=== PATIENT | male | born 1975 | race Caucasian/White ===

== ENCOUNTER 2021-05-02 16:44 | Emergency (ER) | payer BC, SELFPAY ==
[~2021-05-02] VITALS: Ht 182.9 cm; Wt 95.3 kg
[2021-05-02 16:54] VITALS: BP_SYST 136
[2021-05-02] MEDS ORDERED: IOHEXOL 350 mgI/mL, 150 ML INFUS..BTL IV ONE (18:11)
[2021-05-02 18:18] LABS: BASOPHILS % (AUTO) 0.5 % (0.0-2.0); EOSINOPHILS # (AUTO) 0.3 K/uL (0.0-0.4); EOSINOPHILS % (AUTO) 4.3 % (0.0-4.0); HEMATOCRIT 41.7 % (36-54); HEMOGLOBIN 14.3 g/dL (14.0-18.0); LYMPHOCYTES # (AUTO) 1.9 K/uL (1.0-5.5); LYMPHOCYTES % (AUTO) 31.1 % (20.5-51.5); MEAN CORPUSCULAR HEMOGLOBIN 32 pg (27-31); MEAN CORPUSCULAR HGB CONC 34 % (32-36); MEAN CORPUSCULAR VOLUME 92 fL (79.0-98.0); MONOCYTES # (AUTO) 0.4 K/uL (0.0-1.0); MONOCYTES % (AUTO) 7.3 % (1.7-9.3); NEUTROPHILS # (AUTO) 3.5 K/uL (1.8-7.7); NEUTROPHILS % (AUTO) 56.8 % (40.0-70.0); PLATELET COUNT (AUTO) 212 K/uL (130-430); RED BLOOD CELL COUNT(AUTO) 4.51 MIL/uL (4.2-6.2); WHITE BLOOD COUNT (AUTO) 6.1 K/uL (4.8-10.8)
[2021-05-02 18:29] LABS: CALCIUM 8.5 mg/dL (8.4-11.0); CREATININE 1.16 mg/dL (0.55-1.30)
[2021-05-02 18:38] LABS: TOTAL BILIRUBIN 0.4 mg/dL (0.0-1.0)
[2021-05-02 18:47] LABS: PROTHROMBIN TIME 10.6 SECS (9.5-12.5)
[2021-05-02 21:56] VITALS: BP_SYST 137
== END 2021-05-02 21:56 | disposition short-term general hospital (02) ==
LOC: SED 16:44
DX: H54.61 Unqualified visual loss, right eye, normal vision left eye (principal); K21.9 Gastro-esophageal reflux disease without esophagitis; Z20.822 Contact with and (suspected) exposure to COVID-19
CPT/HCPCS: 36415; 70450; 70496; 70498; 71045; 76376; 80053; 84484; 85025; 85610; 85730; 87426; 93005; 99285; Q9967